=== PATIENT | male | born 1990 | race Caucasian/White ===

== ENCOUNTER 2017-05-28 09:39 | Emergency (ER) | payer MEDICAID ==
[~2017-05-28] VITALS: Ht 180.3 cm; Wt 90.7 kg
[2017-05-28 10:05] VITALS: BP 136/93
[2017-05-28] MEDS ORDERED: LIDOCAINE 1% HCL (LOCAL ANESTH.) INJ 20ML MDV ONE (10:19)
[2017-05-28] MEDS ORDERED: methylPREDNISolone SOD SUCC 125 MG/2 ML VL IM ONE (10:30)
[2017-05-28] MEDS ORDERED: cefTRIAXone SOD 1,000 MG VL IM ONE (10:30)
[2017-05-28] MEDS ORDERED: diphenhdrAMINE HCL 25 MG CAP PO ONE (10:30)
== END 2017-05-28 10:35 | disposition home or self-care (01) ==
LOC: ER 09:39
DX: L02.414 Cutaneous abscess of left upper limb (principal); Z88.1 Allergy status to other antibiotic agents
CPT/HCPCS: 96372; 99284; J0696; J2001; J2930

== ENCOUNTER 2017-06-01 14:40 | Emergency (ER) | payer MEDICAID ==
[~2017-06-01] VITALS: Ht 180.3 cm; Wt 90.7 kg
[2017-06-01 14:47] VITALS: BP 144/94
== END 2017-06-01 20:17 | disposition left against medical advice (07) ==
LOC: ER 14:40
DX: L02.414 Cutaneous abscess of left upper limb (principal); Z53.21 Procedure and treatment not carried out due to patient leaving prior to being seen by health care provider

== ENCOUNTER 2018-01-21 18:22 | Emergency (ER) | payer MEDICAID ==
[~2018-01-21] VITALS: Ht 180.3 cm; Wt 86.2 kg
[2018-01-21 18:37] VITALS: BP 128/76
== END 2018-01-21 20:00 | disposition home or self-care (01) ==
LOC: ER 18:22
DX: S93.691A Other sprain of right foot, initial encounter (principal); S93.491A Sprain of other ligament of right ankle, initial encounter; Z88.0 Allergy status to penicillin; X58.XXXA Exposure to other specified factors, initial encounter; Y93.89 Activity, other specified; Y99.8 Other external cause status; Y92.89 Other specified places as the place of occurrence of the external cause
CPT/HCPCS: 29515; 73610; 73630

== ENCOUNTER 2021-09-29 14:22 | Emergency (ER) | payer SELFPAY ==
[~2021-09-29] VITALS: Ht 177.8 cm; Wt 86.2 kg
[2021-09-29 16:01] LABS: Urine Bacteria NONE SEEN /hpf (None Seen); Urine Blood Negative /uL (Negative); Urine Mucus FEW (None Seen); Urine WBC 315 /hpf (0 - 3)
[2021-09-29 16:05] VITALS: BP 132/74
[2021-09-29] MEDS ORDERED: cefTRIAXone SOD 1,000 MG VL IM ONE (16:15)
[2021-09-29] MEDS ORDERED: DOXY-338 PO (16:17)
== END 2021-09-29 16:48 | disposition home or self-care (01) ==
LOC: ER 14:22
DX: N39.0 Urinary tract infection, site not specified (principal); Z20.2 Contact with and (suspected) exposure to infections with a predominantly sexual mode of transmission
CPT/HCPCS: 81001; 96372; 99283; J0696

== ENCOUNTER 2022-04-01 04:39 | Emergency (ER) | payer MEDICAID ==
[~2022-04-01] VITALS: Ht 177.8 cm; Wt 210.0 kg
[~2022-04-01 04:39] MED LIST: DOXY-338 PO
[2022-04-01 04:54] VITALS: BP 154/101
[2022-04-01 05:46] LABS: Urine Bacteria MANY /hpf (None Seen); Urine Blood Negative /uL (Negative); Urine Mucus FEW (None Seen); Urine Specific Gravity 1.019 (1.001-1.035); Urine Sperm PRESENT /hpf (None Seen); Urine WBC 3 /hpf (0 - 3)
[2022-04-01 06:29] LABS: Alcohol, Urine < 3.0 mg/dL (0-10); Amphetamine Screen, Urine POSITIVE (NEGATIVE); Barbiturate Scree,Urine NEGATIVE (NEGATIVE); Benzodiazephine Screen, Urine NEGATIVE (NEGATIVE); Cannabinoid Screen, Urine POSITIVE (NEGATIVE); Cocaine Screen, Urine NEGATIVE (NEGATIVE); Opiate Scree,Urine POSITIVE (NEGATIVE); Phencyclidine Screen, Urine NEGATIVE (NEGATIVE)
== END 2022-04-01 05:30 | disposition left against medical advice (07) ==
LOC: EDBD 04:39 → ER 04:39
DX: T40.411A Poisoning by fentanyl or fentanyl analogs, accidental (unintentional), initial encounter (principal); R07.89 Other chest pain; Z53.21 Procedure and treatment not carried out due to patient leaving prior to being seen by health care provider; Y92.89 Other specified places as the place of occurrence of the external cause
CPT/HCPCS: 80307; 81001; 93005

== ENCOUNTER 2022-04-06 14:37 | Inpatient (IN) | payer MEDICAID ==
[~2022-04-06] VITALS: Ht 177.8 cm; Wt 70.8 kg
[2022-04-06] MEDS ORDERED: SODIUM CHLORIDE 0.9% 1,000 ML IV ONE (15:45)
[2022-04-06 17:03] LABS: Urine Bacteria NONE SEEN /hpf (None Seen); Urine Blood Negative /uL (Negative); Urine Mucus FEW (None Seen); Urine WBC 1 /hpf (0 - 3)
[2022-04-06 17:23] LABS: Alcohol, Urine < 3.0 mg/dL (0-10); Amphetamine Screen, Urine POSITIVE (NEGATIVE); Barbiturate Scree,Urine NEGATIVE (NEGATIVE); Benzodiazephine Screen, Urine NEGATIVE (NEGATIVE); Cannabinoid Screen, Urine POSITIVE (NEGATIVE); Cocaine Screen, Urine NEGATIVE (NEGATIVE); Opiate Scree,Urine POSITIVE (NEGATIVE); Phencyclidine Screen, Urine POSITIVE (NEGATIVE)
[2022-04-06] MEDS ORDERED: ACETAMINOPHEN 325 MG TAB PO PRN (18:00)
[2022-04-06] MEDS ORDERED: HYDROcodone-ACET 5/325MG TAB PO PRN (18:00)
[2022-04-06] MEDS ORDERED: ONDANSETRON HCL 4 MG/2 ML VIAL IV PRN (18:00)
[2022-04-06] MEDS ORDERED: DOCUSATE SOD 100 MG CAP PO PRN (18:00)
[2022-04-06] MEDS ORDERED: VANCOMYCIN 1GM/250ML 250 ML IV ONE (19:45)
[2022-04-06] MEDS ORDERED: VANCOMYCIN PER PHARMACY 0 MG IV SCH (19:45)
[2022-04-06 23:28] LABS: Basophils # (auto) 0.1 10 ^3/uL (0-0.2); Basophils % (auto) 0.5 % (0.0-2.0); Eosinophils # (auto) 0.5 10 ^3/uL (0-0.8); Eosinophils % (auto) 3.4 % (0.0-7.0); Hematocrit 41.9 % (41.0-53.0); Hemoglobin 14.7 g/dL (13.5-17.5); Lymphocytes # (auto) 1.8 10 ^3/uL (0.4-5.4); Lymphocytes % (auto) 11.8 % (10.0-50.0); Mean Corpuscular Hemoglobin 30.8 pg (28.0-32.0); Mean Corpuscular Volume 87.9 fL (80.0-100.0); Monocytes # (auto) 1.1 10 ^3/uL (0-1.3); Monocytes % (auto) 7.3 % (0.0-12.0); Nucleated Red Blood Cells % 0.1 %; Red Blood Cells 4.76 10^6/uL (4.5-5.90); Red Cell Distribution Width 12.5 % (11.8-14.3); White Blood Cell 15.5 10^3/uL (4.4-10.8)
[2022-04-06 23:50] LABS: Albumin 3.4 g/dL (3.4-5.0); INR 0.97 (0.9-1.15); Magnesium 2.4 mg/dL (1.6-2.6); Partial Thromboplastin Time 26.6 sec (24.6-33.4); Potassium 3.7 mmol/L (3.5-5.1)
[2022-04-06 23:58] LABS: BUN/Creatinine Ratio 15.6; Bilirubin, Total 0.7 mg/dL (0.2-1.0); Total Protein 6.6 g/dL (6.4-8.2)
[2022-04-07 03:30] LABS: Basophils # (auto) 0.1 10 ^3/uL (0-0.2); Basophils % (auto) 0.4 % (0.0-2.0); Eosinophils # (auto) 0.4 10 ^3/uL (0-0.8); Eosinophils % (auto) 2.7 % (0.0-7.0); Hematocrit 42.8 % (41.0-53.0); Hemoglobin 14.8 g/dL (13.5-17.5); Lymphocytes % (auto) 12.5 % (10.0-50.0); Mean Corpuscular Hemoglobin 30.7 pg (28.0-32.0); Mean Corpuscular Hgb Conc. 34.6 g/dL (32.0-36.0); Mean Corpuscular Volume 88.6 fL (80.0-100.0); Monocytes # (auto) 1.3 10 ^3/uL (0-1.3); Neutrophils # (auto) 12.2 10 ^3/uL (1.6-8.6); Neutrophils % (auto) 76.4 % (37.0-80.0); Nucleated Red Blood Cells % 0.1 %; Red Blood Cells 4.82 10^6/uL (4.5-5.90); Red Cell Distribution Width 12.4 % (11.8-14.3); White Blood Cell 15.9 10^3/uL (4.4-10.8)
[2022-04-07 03:49] LABS: Potassium 4.1 mmol/L (3.5-5.1)
[2022-04-07 03:55] LABS: Albumin 3.1 g/dL (3.4-5.0); BUN/Creatinine Ratio 12.9; Bilirubin, Total 0.8 mg/dL (0.2-1.0)
[2022-04-07] MEDS: CLINDAMYCIN 600MG IV 50 ML IV SCH ×3 (05:45→18:28)
[2022-04-07] MEDS ORDERED: VANCOMYCIN 1GM/250ML 250 ML IV SCH ×2 (10:00→11:00)
[2022-04-07] MEDS: PANTOPRAZOLE 40 MG/10 ML VIAL INJ IV SCH (15:57)
[2022-04-08] MEDS: CLINDAMYCIN 600MG IV 50 ML IV SCH ×3 (02:56→20:18)
[2022-04-08 09:20] VITALS: BP 128/68
[2022-04-08 09:38] VITALS: BP 128/68
[2022-04-08] MEDS: PANTOPRAZOLE 40 MG/10 ML VIAL INJ IV SCH (11:01)
[2022-04-08] MEDS ORDERED: VANCOMYCIN 1GM/250ML 250 ML IV SCH ×2 (12:00)
[2022-04-08] MEDS ORDERED: LIDOCAINE 2% (LOCAL ANESTH.) PF 5ml SDV ONE (12:40)
[2022-04-08 13:00] VITALS: BP 151/87
[2022-04-08] MEDS: VANCOMYCIN 1GM/250ML 250 ML IV SCH (21:36)
[2022-04-08 22:00] VITALS: BP 144/81
[2022-04-09] MEDS: CLINDAMYCIN 600MG IV 50 ML IV SCH ×3 (02:30→19:37)
[2022-04-09] MEDS: VANCOMYCIN 1GM/250ML 250 ML IV SCH ×3 (04:06→23:55)
[2022-04-09 05:00] VITALS: BP 138/88
[2022-04-09 07:18] LABS: Potassium 4.4 mmol/L (3.5-5.1)
[2022-04-09 07:20] LABS: BUN/Creatinine Ratio 22.4; Basophils # (auto) 0.1 10 ^3/uL (0-0.2); Basophils % (auto) 0.9 % (0.0-2.0); Calcium 9.5 mg/dL (8.5-10.1); Eosinophils # (auto) 0.3 10 ^3/uL (0-0.8); Eosinophils % (auto) 3.8 % (0.0-7.0); Hematocrit 45.5 % (41.0-53.0); Hemoglobin 15.7 g/dL (13.5-17.5); Lymphocytes # (auto) 2.3 10 ^3/uL (0.4-5.4); Lymphocytes % (auto) 24.6 % (10.0-50.0); Mean Corpuscular Hemoglobin 30.6 pg (28.0-32.0); Mean Corpuscular Hgb Conc. 34.5 g/dL (32.0-36.0); Mean Corpuscular Volume 88.7 fL (80.0-100.0); Monocytes # (auto) 0.7 10 ^3/uL (0-1.3); Monocytes % (auto) 7.1 % (0.0-12.0); Neutrophils # (auto) 5.8 10 ^3/uL (1.6-8.6); Neutrophils % (auto) 63.6 % (37.0-80.0); Nucleated Red Blood Cells % 0.1 %; Red Blood Cells 5.13 10^6/uL (4.5-5.90); Red Cell Distribution Width 12.6 % (11.8-14.3); White Blood Cell 9.2 10^3/uL (4.4-10.8)
[2022-04-09 09:00] VITALS: BP 129/80
[2022-04-09] MEDS: PANTOPRAZOLE 40 MG/10 ML VIAL INJ IV SCH (10:36)
[2022-04-09 13:00] VITALS: BP 146/90
[2022-04-09 16:54] VITALS: BP 129/87
[2022-04-09 20:00] VITALS: BP 132/80
[2022-04-09 22:00] VITALS: BP 132/80
[2022-04-10] MEDS: CLINDAMYCIN 600MG IV 50 ML IV SCH ×3 (04:00→19:05)
[2022-04-10 05:00] VITALS: BP 134/89
[2022-04-10] MEDS: VANCOMYCIN 1GM/250ML 250 ML IV SCH ×3 (05:00→21:36)
[2022-04-10 09:00] VITALS: BP_SYST 136; BP_SYST 137; BP_DIAS 107; BP_DIAS 85
[2022-04-10] MEDS: PANTOPRAZOLE 40 MG/10 ML VIAL INJ IV SCH (10:00)
[2022-04-10 13:00] VITALS: BP 118/53
[2022-04-10 13:03] LABS: Albumin 3.1 g/dL (3.4-5.0); BUN/Creatinine Ratio 19.5; Calcium 9.1 mg/dL (8.5-10.1); Phosphorus 3.6 mg/dL (2.5-4.90); Potassium 4.3 mmol/L (3.5-5.1)
[2022-04-10 16:34] VITALS: BP 122/84
[2022-04-10 20:00] VITALS: BP 98/58
[2022-04-10 22:00] VITALS: BP 98/58
[2022-04-11] MEDS: CLINDAMYCIN 600MG IV 50 ML IV SCH ×2 (03:05→10:02)
[2022-04-11 05:00] VITALS: BP 129/85
[2022-04-11] MEDS: VANCOMYCIN 1GM/250ML 250 ML IV SCH (05:08)
[2022-04-11 09:00] VITALS: BP 134/89
[2022-04-11] MEDS: PANTOPRAZOLE 40 MG/10 ML VIAL INJ IV SCH (10:02)
[2022-04-11] MEDS ORDERED: CLIN300C8 PO (11:16)
[2022-04-11] MEDS ORDERED: HYDR-4902 PO (11:16)
== END 2022-04-11 12:41 | disposition home or self-care (01) | DRG 383 ==
LOC: ER 14:41 → OVERFLOW 17:55 → WEST WING 04-08 08:45
PROVIDERS: ADMIT Nurse Practitioner Family; ATTEND Internal Medicine
PROC: 0X973ZZ Drainage of Left Upper Extremity, Percutaneous Approach (ICD-10-PCS; principal; 2022-04-08)
DX: L02.414 Cutaneous abscess of left upper limb (principal); R65.10 Systemic inflammatory response syndrome (SIRS) of non-infectious origin without acute organ dysfunction; F15.10 Other stimulant abuse, uncomplicated; L03.114 Cellulitis of left upper limb; Z20.822 Contact with and (suspected) exposure to COVID-19; I10 Essential (primary) hypertension; Z88.8 Allergy status to other drugs, medicaments and biological substances
CPT/HCPCS: 36415; 71046; 73200; 76881; 76942; 80048; 80053; 80069; 80202; 80307; 81001; 83735; 84100; 85025; 85610; 85730; 87040; 87077; 87186; 87205; 87426; 89051; 96365; 96367; 96375; C1729; C9113; G0378; J2001; J3490